=== PATIENT | female | born 1930 | race African-American/Black ===

== ENCOUNTER 2020-10-12 09:40 | Emergency (ER) | payer MEDICARE, MEDICAID ==
[~2020-10-12] VITALS: Ht 160 cm; Wt 57.6 kg
--- NOTE | 2020-10-12 10:03 | Emergency Room Report ---
History of Present Illness General Chief Complaint: Generalized Weakness Source: Patient Present Illness HPI Patient is an 89-year-old female presents to the ER complaining of generalized weakness and fatigue for 2 weeks. Patient also complains of urinary frequency. She denies any chest pain or cough. She states that she has chronic shortness of breath from her heart failure which is unchanged. Patient states that she is on 2 L nasal cannula at home as needed. She denies any abdominal pain nausea or vomiting. Allergies: Coded Allergies: PENICILLINS (Verified Allergy, Unknown, 10/12/20) COVID-19 Screening Contact w/high risk pt: No Experienced COVID-19 symptoms?: No COVID-19 Testing performed HEALTH OFFICER: Yes COVID-19 Screening: Negative COVID-19 COVID-19 Testing Source: [facility]ARN[facility] [employer]NER Patient History Reviewed Nursing Documentation: PMH: Agreed; PSxH: Agreed Nursing Documentation-PMH Hx Hypertension: Yes Hx COPD: Yes Review of Systems All Other Systems: negative except mentioned in HPI Physical Exam Vital Signs Date Time Temp Pulse Resp B/P (MAP) Pulse Ox O2 Delivery O2 Flow Rate FiO2 10/12/20 09:47 98.4 57 16 124/73 (90) 90 Room Air Sp02 EP Interpretation: reviewed, normal General Appearance: no apparent distress, alert, GCS 15, non-toxic, other - Elderly female Head: normocephalic, atraumatic Eyes: bilateral eye normal inspection, bilateral eye PERRL ENT: hearing grossly normal, normal pharynx, no angioedema, normal voice Neck: full range of motion, no meningismus Respiratory: no respiratory distress, no accessory muscle use, crackles Cardiovascular #1: regular rate, rhythm Gastrointestinal: non tender, soft, no guarding, no rebound Rectal: deferred Musculoskeletal: normal range of motion 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 Due to a high probability of clinically significant, life threatening deterioration, the patient required my highest level of preparedness to intervene emergently and I personally spent this critical care time directly and personally managing the patient. This critical care time included obtaining a history; examining the patient; pulse oximetry; ordering and review of studies; arranging urgent treatment with development of a management plan; evaluation of patient's response to treatment; frequent reassessment; and, discussions with other providers.This critical care time was performed to assess and manage the high probability of imminent, life- threatening deterioration that could result in multi-organ failure. It was ex clusive of separately billable procedures and treating other patients and teaching time. Please see MDM section and the rest of the note for further information on patient assessment and treatment. Medical Decision Making Diagnostic Impression: Primary Impression: CHF exacerbation Additional Impressions: Pleural effusion Failure to thrive Elevated troponin Anemia ER Course Patient presents generally weak and fatigued. Patient's labs demonstrate acute renal insufficiency and elevated troponin. Patient has no chest pain and no ST elevation on her EKG. Patient does have pleural effusion and elevated BNP. Patient given Lasix IV as well as aspirin. Will hold on aggressive hydration due to patient's CHF and risk of respiratory failure from pulmonary edema. Patient will be admitted for further treatment and evaluation. Laboratory Tests Test 10/12/20 10:16 White Blood Count 7.1 K/UL (4.8-10.8) Red Blood Count 3.02 M/UL (4.20-5.40) L Hemoglobin 9.1 G/DL (12.0-16.0) L Hematocrit 30.3 % (37.0-47.0) L Mean Corpuscular Volume 101 FL (80-99) H Mean Corpuscular Hemoglobin 30.2 PG (27.0-31.0) Mean Corpuscular Hemoglobin Concent 30.1 G/DL (32.0-36.0) L Red Cell Distribution Width 15.3 % (11.6-14.8) H Platelet Count 170 K/UL (150-450) Mean Platelet Volume 6.7 FL (6.5-10.1) Neutrophils (%) (Auto) 76.7 % (45.0-75.0) H Lymphocytes (%) (Auto) 13.5 % (20.0-45.0) L Monocytes (%) (Auto) 4.9 % (1.0-10.0) Eosinophils (%) (Auto) 4.2 % (0.0-3.0) H Basophils (%) (Auto) 0.7 % (0.0-2.0) Prothrombin Time 12.0 SEC (9.30-11.50) H Prothrombin Time INR 1.1 (0.9-1.1) Activated Partial Thromboplast Time 24 SEC (23-33) Sodium Level 140 MMOL/L (136-145) Potassium Level 4.3 MMOL/L (3.5-5.1) Chloride Level 101 MMOL/L (98-107) Carbon Dioxide Level 37 MMOL/L (21-32) H Anion Gap 2 mmol/L (5-15) L Blood Urea Nitrogen 57 mg/dL (7-18) H Creatinine 3.9 MG/DL (0.55-1.30) H Estimated Glomerular Filtration Rate 13.1 mL/min (>60) Glucose Level 102 MG/DL (74-106) Lactic Acid Level 1.60 mmol/L (0.4-2.0) Calcium Level 12.8 MG/DL (8.5-10.1) H Magnesium Level 2.4 MG/DL (1.8-2.4) Total Bilirubin 0.7 MG/DL (0.2-1.0) Aspartate Amino Transferase (AST) 16 U/L (15-37) Alanine Aminotransferase (ALT) 13 U/L (12-78) Alkaline Phosphatase 47 U/L (46-116) Troponin I 0.308 ng/mL (0.000-0.056) Pro-B-Type Natriuretic Peptide 00579 pg/mL (0-125) H Total Protein 7.1 G/DL (6.4-8.2) Albumin 3.8 G/DL (3.4-5.0) Globulin 3.3 g/dL Albumin/Globulin Ratio 1.2 (1.0-2.7) Microbiology Date/Time Source Procedure Growth Status 10/12/20 10:21 Nasopharynx SARS-CoV-2 Antigen (Rapid)(MACK) - Final Complete EKG Diagnostic Results Troponin ordered: Yes When was troponin ordered?: Oct 12, 2020 EKG Time: 10:13 EP Interpretation: Hermelinda Cabrera MD Rate: bradycardiac - 8 bpm Rhythm: other - Sinus bradycardia ST Segments: no acute changes ASA given to the pt in ED: Yes Rhythm Strip Diag. Results Rhythm Strip Time: 11:12 EP Interpretation: yes Rate: 63 bpm Rhythm: NSR, no PVC's, no ectopy Chest X-Ray Diagnostic Results Chest X-Ray Diagnostic Results : Chest X-Ray Ordered: Yes # of Views/Limited/Complete: 1 View Indication: Shortness of Breath EP Interpretation: Yes Interpretation: no consolidation, no pneumothorax, other - Mild CHF and pleural effusion Impression: Other - CHF and pleural effusion Electronically Signed by: Hermelinda Cabrera MD Last Vital Signs Date Time Temp Pulse Resp B/P (MAP) Pulse Ox O2 Delivery O2 Flow Rate FiO2 10/12/20 09:47 98.4 57 16 124/73 (90) 90 Room Air Disposition: ADMITTED INPATIENT - Telemetry Condition: Critical Physician Consult: Dr. Massey Additional Instructions: Please note that this report is being documented using [employer] technology. This can lead to erroneous entry secondary to incorrect interpretation by the dictating instrument. Hermelinda Cabrera M.D. Oct 12, 2020 10:03
[2020-10-12 10:28] VITALS: BP 138/92
[2020-10-12 10:38] LABS: BASOPHILS % (AUTO) 0.7 % (0.0-2.0); EOSINOPHILS % (AUTO) 4.2 % (0.0-3.0); HEMATOCRIT 30.3 % (37.0-47.0); HEMOGLOBIN 9.1 G/DL (12.0-16.0); LYMPHOCYTES % (AUTO) 13.5 % (20.0-45.0); MEAN CORPUSCULAR VOLUME 101 FL (80-99); MONOCYTES % (AUTO) 4.9 % (1.0-10.0); NEUTROPHILS % (AUTO) 76.7 % (45.0-75.0); PLATELET COUNT 170 K/UL (150-450); RED BLOOD COUNT 3.02 M/UL (4.20-5.40); RED CELL DISTRIBUTION WIDTH 15.3 % (11.6-14.8); WHITE BLOOD COUNT 7.1 K/UL (4.8-10.8)
[2020-10-12] MEDS ORDERED: Cefepime HCl 2 GM in D5W 55 ML IVPB ONE (10:45)
[2020-10-12] MEDS ORDERED: Vancomycin 1 GM in NS 275 ML IVPB ONE (10:45)
[2020-10-12 10:48] LABS: INR 1.1 (0.9-1.1)
--- NOTE | 2020-10-12 10:49 | Diagnostic Imaging Report ---
Indication: Reason For Exam: WEAK Technique: XRAY Chest 1v Comparison:None Findings: The heart is enlarged. Aorta is elongated and calcified. Blunting of the right costophrenic angle is noted. There is mild prominence of pulmonary vascularity. Osseous structures demonstrate degenerative change in both shoulders. Impression: Cardiomegaly with atherosclerotic change. Mild congestive heart failure with right pleural effusion. Bilateral shoulder degenerative change.
[2020-10-12 10:57] LABS: CALCIUM 12.8 MG/DL (8.5-10.1); CREATININE 3.9 MG/DL (0.55-1.30); POTASSIUM 4.3 MMOL/L (3.5-5.1)
[2020-10-12 11:08] LABS: ALBUMIN 3.8 G/DL (3.4-5.0); ALBUMIN/GLOBULIN RATIO 1.2 (1.0-2.7); BILIRUBIN,TOTAL 0.7 MG/DL (0.2-1.0)
--- NOTE | 2020-10-12 11:58 | NUR ---
ED Nurse Note: pt states feeling general weakness. pt states decrease in appetite, claims its from medication that decreases desire to eat.
[2020-10-12 12:01] VITALS: BP 153/68
[2020-10-12 12:09] LABS: APPEARANCE,URINE CLEAR; BILIRUBIN, URINE NEGATIVE (NEGATIVE); COLOR,URINE PALE YELLOW; GLUCOSE, URINE (UA) NEGATIVE (NEGATIVE); KETONES,URINE NEGATIVE (NEGATIVE); LEUKOCYTE ESTERASE ,URINE 1+ (NEGATIVE); NITRITE,URINE NEGATIVE (NEGATIVE); PH,URINE 8 (4.5-8.0); PROTEIN,URINE NEGATIVE (NEGATIVE); UROBILINOGEN,URINE NORMAL MG/DL (0.0-1.0)
[2020-10-12 13:00] VITALS: BP 152/85
[2020-10-12 14:30] VITALS: BP 155/82
--- NOTE | 2020-10-12 14:30 | NUR ---
spoke with pt jon pierce on phone. family has care set up for pt when pt is ready for discharge. request to call son my md for update & discharge plan.
--- NOTE | 2020-10-12 14:34 | NUR ---
stan number: [phone]
[2020-10-12] MEDS ORDERED: Albuterol 90mcg Inhaler 8gm INH PRN (14:45)
[2020-10-12] MEDS: NIFEdipine 10mg cap ORAL SCH ×2 (14:45→21:46)
[2020-10-12] MEDS ORDERED: Nitroglycerin Subl 0.4mg tab SL PRN (14:45)
--- NOTE | 2020-10-12 14:58 | History and Physical ---
History of Present Illness General Date patient seen: Oct 12, 2020 Time patient seen: 13:00 Reason for Hospitalization: Generalized Weakness Present Illness HPI 89 Y/ AA F with PMH of HTN, Mild CKD ( unknown stage or prior baseline creatinine ) , COPD on Home oxygen who was referred to the ER due to increasing weakness and failure to thrive. Her PO intake has been diminished for the past week. She denies any sick contacts, medical non compliance and her gait is weak. In the ED she was found to have renal failure with Cr: 3.9 and BUN in the 50 range. Admission is requested for medical workup. She denies any nephrotoxin intake, reports seeing a civil celebrant in the past and it has been years since she had an echocardiogram. No prior CAD, CVA noted. Allergies: Coded Allergies: PENICILLINS (Verified Allergy, Unknown, 10/12/20) COVID-19 Screening Contact w/high risk pt: No Experienced COVID-19 symptoms?: No Medication History Unable to Obtain Active Prescriptions or Reported Meds Patient History Healthcare decision maker Resuscitation status Advanced Directive on File Physical Exam General Appearance: no apparent distress Lines, tubes and drains: peripheral HEENT: normocephalic, atraumatic Neck: non-tender, normal alignment Respiratory/Chest: lungs clear Cardiovascular/Chest: normal peripheral pulses, normal rate Abdomen: normal bowel sounds, non tender Extremities: normal range of motion Skin Exam: normal pigmentation 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 grossly normal Last 24 Hour Vital Signs Date Time Temp Pulse Resp B/P (MAP) Pulse Ox O2 Delivery O2 Flow Rate FiO2 10/12/20 13:00 63 18 152/85 97 Room Air 10/12/20 12:01 65 18 153/68 96 Room Air 65 10/12/20 10:47 60 20 Room Air 10/12/20 10:28 58 20 138/92 97 Room Air 10/12/20 09:47 98.4 57 16 124/73 (90) 90 Room Air Laboratory Tests Test 10/12/20 10:16 10/12/20 11:54 White Blood Count 7.1 K/UL (4.8-10.8) Red Blood Count 3.02 M/UL (4.20-5.40) L Hemoglobin 9.1 G/DL (12.0-16.0) L Hematocrit 30.3 % (37.0-47.0) L Mean Corpuscular Volume 101 FL (80-99) H Mean Corpuscular Hemoglobin 30.2 PG (27.0-31.0) Mean Corpuscular Hemoglobin Concent 30.1 G/DL (32.0-36.0) L Red Cell Distribution Width 15.3 % (11.6-14.8) H Platelet Count 170 K/UL (150-450) Mean Platelet Volume 6.7 FL (6.5-10.1) Neutrophils (%) (Auto) 76.7 % (45.0-75.0) H Lymphocytes (%) (Auto) 13.5 % (20.0-45.0) L Monocytes (%) (Auto) 4.9 % (1.0-10.0) Eosinophils (%) (Auto) 4.2 % (0.0-3.0) H Basophils (%) (Auto) 0.7 % (0.0-2.0) Prothrombin Time 12.0 SEC (9.30-11.50) H Prothromb Time International Ratio 1.1 (0.9-1.1) Activated Partial Thromboplast Time 24 SEC (23-33) Sodium Level 140 MMOL/L (136-145) Potassium Level 4.3 MMOL/L (3.5-5.1) Chloride Level 101 MMOL/L (98-107) Carbon Dioxide Level 37 MMOL/L (21-32) H Anion Gap 2 mmol/L (5-15) L Blood Urea Nitrogen 57 mg/dL (7-18) H Creatinine 3.9 MG/DL (0.55-1.30) H Estimat Glomerular Filtration Rate 13.1 mL/min (>60) Glucose Level 102 MG/DL (74-106) Lactic Acid Level 1.60 mmol/L (0.4-2.0) Calcium Level 12.8 MG/DL (8.5-10.1) H Magnesium Level 2.4 MG/DL (1.8-2.4) Total Bilirubin 0.7 MG/DL (0.2-1.0) Aspartate Amino Transf (AST/SGOT) 16 U/L (15-37) Alanine Aminotransferase (ALT/SGPT) 13 U/L (12-78) Alkaline Phosphatase 47 U/L (46-116) Troponin I 0.308 ng/mL (0.000-0.056) Pro-B-Type Natriuretic Peptide 77737 pg/mL (0-125) H Total Protein 7.1 G/DL (6.4-8.2) Albumin 3.8 G/DL (3.4-5.0) Globulin 3.3 g/dL Albumin/Globulin Ratio 1.2 (1.0-2.7) Urine Color Pale yellow Urine Appearance Clear Urine pH 8 (4.5-8.0) Urine Specific [place] 1.010 (1.005-1.035) Urine Protein Negative (NEGATIVE) Urine Glucose (UA) Negative (NEGATIVE) Urine Ketones Negative (NEGATIVE) Urine Blood Negative (NEGATIVE) Urine Nitrite Negative (NEGATIVE) Urine Bilirubin Negative (NEGATIVE) Urine Urobilinogen Normal MG/DL (0.0-1.0) Urine Leukocyte Esterase 1+ (NEGATIVE) H Urine RBC 0 /HPF (0 - 2) Urine WBC 2-4 /HPF (0 - 2) Urine Squamous Epithelial Cells Occasional /LPF Urine Bacteria Occasional /HPF (NONE) Microbiology Date/Time Source Procedure Growth Status 10/12/20 10:21 Nasopharynx SARS-CoV-2 Antigen (Rapid)(MACK) - Final Complete Height (Feet): 5 Height (Inches): 3.00 Weight (Pounds): 127 Medications Current Medications Medications (Trade) Dose Ordered Sig/Violette Route PRN Reason Start Time Stop Time Status Last Admin Dose Admin Acetaminophen (Tylenol) 650 mg Q4H PRN ORAL Mild Pain (Pain Scale 1-3) 10/12/20 14:45 11/11/20 14:44 Acetaminophen (Tylenol) 650 mg Q4H PRN ORAL Temp >100.5 10/12/20 14:45 11/11/20 14:44 Bisacodyl (Dulcolax) 10 mg DAILYPRN PRN RECTAL Constipation 10/12/20 14:45 01/10/21 14:44 Dextrose (Dextrose 50%) 25 ml Q30M PRN IV Hypoglycemia 10/12/20 14:45 01/10/21 14:44 Dextrose (Dextrose 50%) 50 ml Q30M PRN IV Hypoglycemia 10/12/20 14:45 01/10/21 14:44 Docusate Sodium (Colace) 100 mg EVERY 12 HOURS ORAL 10/12/20 21:00 11/11/20 20:59 Famotidine (Pepcid) 20 mg BID ORAL 10/12/20 18:00 01/10/21 17:59 Heparin Sodium (Porcine) (Heparin 5000 units/ml) 5,000 units EVERY 12 HOURS SUBQ 10/12/20 21:00 11/26/20 20:59 Morphine Sulfate (Morphine Sulfate) 2 mg Q4H PRN IVP Moderate Pain (Pain Scale 4-6) 10/12/20 14:45 10/19/20 14:44 Nitroglycerin (Ntg) 0.4 mg Q5M PRN SL Prn Chest Pain 10/12/20 14:45 11/11/20 14:44 Ondansetron HCl (Zofran) 4 mg Q6H PRN IVP Nausea & Vomiting 10/12/20 14:45 11/11/20 14:44 Temazepam (Restoril) 15 mg DAILYPRN PRN ORAL Insomnia 10/12/20 14:45 10/19/20 14:44 Assessment/Plan Status: stable Assessment/Plan: 89 y/o F admitted with: # Acute ( on chronic possibly ) renal failure - Monitor I/O's - renal US - Renal consult requested with Dr. Campos who will order further renal workup - Avoid nephrotoxins - Monitor renal indices # HTN Start Nifedipine and monitor response. Attempt to obtain POWER MARKETER medications when possible # History of CHF Echocardiogram Monitor I/O/s, BNP, lipids, tsh, Hba1c # COPD O2 at baseline 2 lt Monitor Add Albuterol MDI ( no HHN due to covid restrictions ) I do not see an active infection at this time and antibiotics will not be continued. Follow up Cx obtained in the ED. # DVT ppx with Heparin # GI ppx with pepcid # FULL CODE # Disposition. Pending PT evaluation and medical progress. Nicolette Massey MD Oct 12, 2020 14:58
[2020-10-12 15:30] VITALS: BP 149/74
[2020-10-12] MEDS: Morphine Sulfate 2mg/ml Inj(IV/IM USE ONLY) IVP PRN (16:34)
[2020-10-12 16:42] VITALS: BP 154/87
--- NOTE | 2020-10-12 19:00 | NUR ---
recieved report patient has generelized weakness, pt AOx4, moves all extremities and currently comfortable, has no complaints
--- NOTE | 2020-10-12 19:28 | NUR ---
pt medicated for low back pain. pt given food. pt on continuous cardiac/O2 monitor.
--- NOTE | 2020-10-12 19:45 | NUR ---
pt ate all of her dinner, resting no complaints
[2020-10-12] MEDS: Docusate 100mg cap ORAL SCH (20:53)
[2020-10-12] MEDS: Heparin 5000 units/ml inj SUBQ SCH (20:53)
[2020-10-13] VITALS: BP 102/56
--- NOTE | 2020-10-13 04:54 | NUR ---
ED Nurse Note: Pt morning blood specimens drawn and sent
[2020-10-13 05:44] LABS: BASOPHILS % (AUTO) 0.9 % (0.0-2.0); EOSINOPHILS % (AUTO) 7.2 % (0.0-3.0); HEMATOCRIT 27.1 % (37.0-47.0); HEMOGLOBIN 8.4 G/DL (12.0-16.0); LYMPHOCYTES % (AUTO) 17.6 % (20.0-45.0); MEAN CORPUSCULAR VOLUME 100 FL (80-99); MONOCYTES % (AUTO) 6.9 % (1.0-10.0); NEUTROPHILS % (AUTO) 67.4 % (45.0-75.0); PLATELET COUNT 142 K/UL (150-450); RED CELL DISTRIBUTION WIDTH 15.6 % (11.6-14.8); WHITE BLOOD COUNT 6.1 K/UL (4.8-10.8)
[2020-10-13] MEDS: Morphine Sulfate 2mg/ml Inj(IV/IM USE ONLY) IVP PRN (05:48)
[2020-10-13] MEDS: NIFEdipine 10mg cap ORAL SCH ×2 (05:49→16:24)
[2020-10-13 06:11] LABS: % IRON SATURATION 17 % (15-50); IRON 36 ug/dL (50-175); TOTAL IRON BINDING CAPACITY 210 ug/dL (250-450)
[2020-10-13 06:13] LABS: GAMMA GLUTAMYL TRANSPEPTIDASE 16 U/L (5-85); LACTATE DEHYDROGENASE 147 U/L (81-234); PHOSPHORUS 2.8 MG/DL (2.5-4.9)
[2020-10-13 06:19] LABS: ALANINE AMINOTRANSFERASE 11 U/L (12-78); ALBUMIN 3.2 G/DL (3.4-5.0); ALKALINE PHOSPHATASE 42 U/L (46-116); ANION GAP 4 mmol/L (5-15); ASPARTATE AMINO TRANSFERASE 15 U/L (15-37); BILIRUBIN,TOTAL 0.6 MG/DL (0.2-1.0); BLOOD UREA NITROGEN 55 mg/dL (7-18); CALCIUM 12.3 MG/DL (8.5-10.1); CARBON DIOXIDE 34 MMOL/L (21-32); CHLORIDE 103 MMOL/L (98-107); CHOLESTEROL 118 MG/DL (< 200); CREATININE 3.6 MG/DL (0.55-1.30); HDL CHOLESTEROL 48 MG/DL (40-60); SODIUM 141 MMOL/L (136-145); TRIGLYCERIDES 72 MG/DL (30-150)
[2020-10-13 07:30] VITALS: BP 138/67
[2020-10-13] MEDS: Docusate 100mg cap ORAL SCH (08:30)
[2020-10-13] MEDS: Heparin 5000 units/ml inj SUBQ SCH (08:31)
[2020-10-13] MEDS: HYDROcodone/Acetamin 7.5/325 tab ORAL PRN ×2 (08:36→13:30)
--- NOTE | 2020-10-13 09:14 | General Progress Note ---
Subjective Date patient seen: Oct 13, 2020 Time patient seen: 08:30 ROS Limited/Unobtainable: Yes Allergies: Coded Allergies: PENICILLINS (Verified Allergy, Unknown, 10/12/20) All Systems: reviewed and negative except above Subjective Feels better today. Wants to go home. Objective Last 24 Hour Vital Signs Date Time Temp Pulse Resp B/P (MAP) Pulse Ox O2 Delivery O2 Flow Rate FiO2 10/13/20 07:30 66 18 138/67 99 Room Air 10/13/20 05:49 56 10/13/20 00:00 98.5 63 20 102/56 98 Room Air 66 10/12/20 21:46 68 142/70 10/12/20 18:57 98.5 10/12/20 16:42 63 19 154/87 96 Room Air 10/12/20 15:30 61 18 149/74 95 Room Air 10/12/20 14:45 69 154/87 10/12/20 14:30 62 19 155/82 96 Room Air 10/12/20 13:00 63 18 152/85 97 Room Air 10/12/20 12:01 65 18 153/68 96 Room Air 65 10/12/20 10:47 60 20 Room Air 10/12/20 10:28 58 20 138/92 97 Room Air 10/12/20 09:47 98.4 57 16 124/73 (90) 90 Room Air Intake and Output 10/12/20 10/13/20 19:00 07:00 Intake Total 350 ml Output Total 225 ml Balance 125 ml Intake Oral 350 ml Output Urine Total 225 ml Laboratory Tests 10/12/20 10:16: White Blood Count 7.1, Red Blood Count 3.02L, Hemoglobin 9.1L, Hematocrit 30.3L, Mean Corpuscular Volume 101H, Mean Corpuscular Hemoglobin 30.2, Mean Corpuscular Hemoglobin Concent 30.1L, Red Cell Distribution Width 15.3H, Platelet Count 170, Mean Platelet Volume 6.7, Neutrophils (%) (Auto) 76.7H, Lymphocytes (%) (Auto) 13.5L, Monocytes (%) (Auto) 4.9, Eosinophils (%) (Auto) 4.2H, Basophils (%) (Auto) 0.7, Prothrombin Time 12.0H, Prothromb Time International Ratio 1.1, Activated Partial Thromboplast Time 24, Sodium Level 140, Potassium Level 4.3, Chloride Level 101, Carbon Dioxide Level 37H, Anion Gap 2L, Blood Urea Nitrogen 57H, Creatinine 3.9H, Estimat Glomerular Filtration Rate 13.1, Glucose Level 102, Lactic Acid Level 1.60, Calcium Level 12.8H, Magnesium Level 2.4, Total Bilirubin 0.7, Aspartate Amino Transf (AST/SGOT) 16, Alanine Aminotransferase (ALT/SGPT) 13, Alkaline Phosphatase 47, Troponin I 0.308H, Pro-B-Type Natriuretic Peptide 32335U, Total Protein 7.1, Albumin 3.8, Globulin 3.3, Albumin/Globulin Ratio 1.2 10/12/20 11:54: Urine Color Pale yellow, Urine Appearance Clear, Urine pH 8, Urine Specific [place] 1.010, Urine Protein Negative, Urine Glucose (UA) Negative, Urine Ketones Negative, Urine Blood Negative, Urine Nitrite Negative, Urine Bilirubin Negative, Urine Urobilinogen Normal, Urine Leukocyte Esterase 1+H, Urine RBC 0, Urine WBC 2-4, Urine Squamous Epithelial Cells Occasional, Urine Bacteria Occasional 10/12/20 18:03: Lactic Acid Level 0.70, Troponin I 0.304H 10/13/20 04:18: White Blood Count 6.1, Red Blood Count 2.70L, Hemoglobin 8.4L, Hematocrit 27.1L, Mean Corpuscular Volume 100H, Mean Corpuscular Hemoglobin 31.0, Mean Corpuscular Hemoglobin Concent 30.8L, Red Cell Distribution Width 15.6H, Platelet Count 142L , Mean Platelet Volume 7.0, Neutrophils (%) (Auto) 67.4, Lymphocytes (%) (Auto) 17.6L, Monocytes (%) (Auto) 6.9, Eosinophils (%) (Auto) 7.2H, Basophils (%) (Auto) 0.9, Sodium Level 141, Potassium Level 4.0, Chloride Level 103, Carbon Dioxide Level 34H, Anion Gap 4L, Blood Urea Nitrogen 55H, Creatinine 3.6H, Estimat Glomerular Filtration Rate 14.4, Glucose Level 106, Calcium Level 12.3H, Magnesium Level 2.2, Total Bilirubin 0.6, Aspartate Amino Transf (AST/SGOT) 15, Alanine Aminotransferase (ALT/SGPT) 11L, Alkaline Phosphatase 42L, Pro-B-Type Natriuretic Peptide [id number], Total Protein 6.3L, Albumin 3.2L, Globulin 3.1, Albumin/Globulin Ratio 1.0, Hemoglobin A1c 5.2, Uric Acid 10.7H, Phosphorus Level 2.8, Iron Level 36L, Total Iron Binding Capacity 210L, Percent Iron Saturation 17, Unsaturated Iron Binding 174, Gamma Glutamyl Transpeptidase 16, Lactate Dehydrogenase 147, C-Reactive Protein, Quantitative < 0.4, Triglycerides Level 72, Cholesterol Level 118, LDL Cholesterol 62, HDL Cholesterol 48, Chol esterol/HDL Ratio 2.5L, Vitamin B12 Level [Pending], Folate [Pending], Thyroid Stimulating Hormone (TSH) 1.295 Height (Feet): 5 Height (Inches): 3.00 Weight (Pounds): 127 General Appearance: WD/WN EENT: PERRL/EOMI Neck: non-tender Cardiovascular: normal rate Respiratory/Chest: lungs clear Abdomen: non tender Edema: trace edema 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 - Renal consult requested with Dr. Campos who will order further renal workup and IVF rate - Avoid nephrotoxins - Monitor renal indices # HTN Start Nifedipine and monitor response. Attempt to obtain EXTRA HAND medications when possible # History of CHF Echocardiogram noted EF 60 % this admission. Monitor I/O/s, BNP, lipids, tsh, Hba1c # COPD O2 at baseline 2 lt Monitor Add Albuterol MDI ( no HHN due to covid restrictions ) I do not see an active infection at this time and antibiotics will not be continued. Follow up Cx obtained in the ED. # DVT ppx with Heparin # GI ppx with pepcid # FULL CODE # Disposition. Pending PT evaluation and medical progress. Spoke with her son Kraig Tang [phone] who reports that he is making arrangements to transfer his mother to [facility] in [place] where she will have 24 hr care. He agrees with medical workup and will talk to the patient about staying until she is medically cleared. Nicolette Massey MD Oct 13, 2020 09:14
--- NOTE | 2020-10-13 11:10 | NUR ---
PT EVALUATION NOTE Patient seen for initial evaluation and treatment initiated. Patient presents with LE weakness and decreased balance which impairs patient's ability to perform mobility skills safely. Patient able to perform bed mobility with SBA. Transfers with SBA/CGA and FWW, unsteady upon standing. Patient able to ambulate 30 ft with FWW, unsteady gait. Patient will benefit from skilled inpatient PT intervention to increase strength and postural stability for improved level of functional mobility, safety and activity tolerance. Patient lives alone and is a high fall risk. Recommend discharge to [facility] or [facility] with PT follow up once medically cleared by MD. Patient states she has a SPC, rollator and scooter. Addendum: 10/13/20 at 1155 by ROSARIO GARZA PT Amended: Links added.
[2020-10-13 11:44] VITALS: BP 158/81
--- NOTE | 2020-10-13 11:45 | NUR ---
ED Nurse Note: 0730: took over pt care. pt on monitor. 1130: spoke with pt son. requesting to move pt home. 1145: spoke with MD Massey. informed of pt & family request to leave AMA. 1155: verbalized pt for AMA over phone.
--- NOTE | 2020-10-13 13:02 | Consultation ---
Consult Note Consult Note I am asked to evaluate the patient at the request of Dr. Massey for renal failure Patient was seen in emergency room bed 2 Patient is poor historian and confused Emergency room note: Chief Complaint: Generalized Weakness Patient is an 89-year-old female presents to the ER complaining of generalized weakness and fatigue for 2 weeks. Patient also complains of urinary frequency. She denies any chest pain or cough. She states that she has chronic shortness of breath from her heart failure which is unchanged. Patient states that she is on 2 L nasal cannula at home as needed. She denies any abdominal pain nausea or vomiting. 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 Assessment/Plan Patient has multiple medical problems Renal failure most likely acute on chronic Anemia Significant hypercalcemia Hypertension Underlying COPD Plan: I try to explain to patient the need for in-hospital care with regard to her abnormal renal function and hypercalcemia. Patient is confused. I discussed with Dr. Massey who stated that he was contacted twice by the son and the son understands the risks and the patient will be signing AGAINST MEDICAL ADVICE and hopefully follow-up with her outpatient physician and kidney specialist. At this point I will sign off and please reconsult as needed. Shay Berry MD Oct 13, 2020 13:02
--- NOTE | 2020-10-13 13:53 | Diagnostic Imaging Report ---
EXAM: ULTRASOUND US Renal Comp CLINICAL HISTORY: Abdominal pain. COMPARISON: None TECHNIQUE: Ultrasound examination of the kidneys includes grayscale images, and color and spectral doppler analysis. FINDINGS: The right kidney measures 9.4 x 3.7 x 4.5 cm and the left kidney measures 10.1 x 4 x 3.8 cm. Both kidneys diffusely echogenic likely reflecting medical renal disease. Slight prominence of the right collecting system noted. No discrete stone or pedro luis hydronephrosis. Urinary bladder appears unremarkable. IMPRESSION: ECHOGENIC KIDNEYS REFLECTING MEDICAL RENAL DISEASE. SLIGHT PROMINENCE OF THE RIGHT COLLECTING SYSTEM.
--- NOTE | 2020-10-13 15:07 | NUR ---
Patients son called and states miss keith will be going to [facility] spoke to cyanide case hardener simon cruz . face sheet and clinicals faxed her son timo will provide the medication list simon cruz [phone] [facility] # [phone] fax [facility][phone]
[2020-10-13 16:30] VITALS: BP 153/69
--- NOTE | 2020-10-13 16:31 | NUR ---
pt in bed. eating food. on continuous cardiac/O2 monitor. 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
--- NOTE | 2020-10-13 18:32 | NUR ---
pt iv removed. pt left ama. son picked up pt and signed paperwork. pt states she is not angry with the ER staff, "just angry with the doctors for trying to keep her in the hospital." pt took all belongings.
--- NOTE | 2020-10-13 18:35 | NUR ---
AMA: SEE AMA FORM.
[2020-10-13 18:45] VITALS: BP 153/69
--- NOTE | 2020-10-16 14:18 | Cardiology Report ---
APPROVED REPORT EKG Measurement Heart [id number] <Conclusion> Sinus bradycardia with first degree AV block Left axis deviation Left ventricular hypertrophy with QRS widening T wave abnormality, consider inferior ischemia Abnormal ECG
== END 2020-10-13 19:00 | disposition left against medical advice (07) ==
LOC: EMR 10:45 → EDBEDREQ 11:06 → EDBEDREQSVC 11:06 → UNDOADMIN 11:07 → 2W 11:07 → EDBEDREQ 10-13 04:48 → EMR 10-13 19:00
DX: N17.9 Acute kidney failure, unspecified (principal); I13.0 Hypertensive heart and chronic kidney disease with heart failure and stage 1 through stage 4 chronic kidney disease, or unspecified chronic kidney disease; I50.9 Heart failure, unspecified; N18.9 Chronic kidney disease, unspecified; J44.9 Chronic obstructive pulmonary disease, unspecified; R62.7 Adult failure to thrive; Z88.0 Allergy status to penicillin; J90 Pleural effusion, not elsewhere classified; R79.89 Other specified abnormal findings of blood chemistry; D64.9 Anemia, unspecified; R00.1 Bradycardia, unspecified; E83.52 Hypercalcemia; Z99.81 Dependence on supplemental oxygen
CPT/HCPCS: 36415; 71045; 76770; 80053; 80061; 81003; 82607; 82746; 82977; 83036; 83540; 83550; 83605; 83615; 83735; 83880; 84100; 84443; 84484; 84550; 85025; 85610; 85730; 86140; 87040; 93005; 93306; 96361; 96374; 96375; 99291; J2405; J7030